=== PATIENT | female | born 1980 | race Caucasian/White ===

== ENCOUNTER 2023-01-15 11:00 | Inpatient (IN) | payer OTHER ==
[2023-01-15 10:55] VITALS: BMI 29.2
[2023-01-15 11:14] LABS: Hematocrit 43.7 % (34.9-44.5); Hemoglobin 14.7 g/dL (12.0-15.5); Mean Corpuscular HGB CONC 33.6 g/dL (32.0-36.0); Mean Corpuscular Hemoglobin 31.5 pg (27.0-33.0); Mean Corpuscular Volume 93.8 fl (81.6-98.3); Mean Platelet Volume 10.6 fl (7.4-10.4); Platelet Count 254 10x3/uL (150-450); RBC Distribution Width 12.2 % (11.5-14.5); Red Blood Cell (RBC) Count 4.66 10x6/uL (3.90-5.03)
[2023-01-15 11:59] LABS: Anion Gap 13 mmol/L (10-20); BUN (Urea Nitrogen) 13 mg/dL (7.0-18.7); Calc. Creatinine Clearance 0 mL/min (70-130); Calcium 9.1 mg/dL (7.8-10.44); Carbon Dioxide 21 mmol/L (22-29); Chloride 110 mmol/L (98-107); Estimated GFR 97; Glucose 86 mg/dL (70-105); Potassium 4.1 mmol/L (3.5-5.1); Sodium 140 mmol/L (136-145)
[2023-01-16] MEDS ORDERED: CEFAZOLIN 2 GM VIAL ONE (05:59)
[2023-01-16] MEDS ORDERED: Lidocaine 1% MPF 2 ML VIAL ONE (05:59)
[2023-01-16] MEDS ORDERED: Sodium Chloride 0.9% 100 ML ONE (06:00)
[2023-01-16] MEDS ORDERED: Rocuronium Bromide 10 MG/ML (10ML VIAL) ONE ×2 (06:56→07:32)
[2023-01-16] MEDS ORDERED: Lidocaine 1% PF 5 ML VIAL ONE ×2 (06:56→07:32)
[2023-01-16] MEDS ORDERED: fentaNYL PF 100 MCG/2 ML SYRINGE ONE ×2 (06:56→08:28)
[2023-01-16] MEDS ORDERED: PROPOFOL 20 ML ONE (06:56)
[2023-01-16] MEDS ORDERED: Ondansetron PF 4 MG/2 ML Vial ONE ×2 (07:01→07:32)
[2023-01-16] MEDS ORDERED: Dexamethasone 20 MG/5 ML VIAL ONE ×2 (07:01→07:32)
[2023-01-16] MEDS ORDERED: Midazolam HCl 2 mg/2 ml Vial ONE (07:01)
[2023-01-16] MEDS ORDERED: Scopolamine 1 mg/72 hour Patch ONE (07:22)
[2023-01-16] MEDS ORDERED: PROPOFOL 200 MG/20 ML VIAL ONE (07:32)
[2023-01-16] MEDS ORDERED: Glycopyrrolate 0.2 MG/ML 5 ML SYRINGE ONE ×2 (07:32→08:43)
[2023-01-16] MEDS ORDERED: NEOSTIGMINE 3 MG/3 ML SYR 3 MG/3 ML SYRINGE ONE ×2 (07:32→08:43)
[2023-01-16] MEDS ORDERED: FENTANYL 500 MCG/10 ML VIAL 2,000 MCG in Sodium Chloride 0.9% 60 ML IV PRN (09:19)
[2023-01-16] MEDS ORDERED: Ondansetron HCl/PF 4 MG/2 ML Vial IVP PRN (09:19)
[2023-01-16] MEDS ORDERED: diphenhydrAMINE 50 MG/ML VIAL IM PRN (09:19)
[2023-01-16] MEDS ORDERED: HYDROmorphone/PF 10 MG in Sodium Chloride 0.9% 99 ML IV PRN (09:19)
[2023-01-16] MEDS ORDERED: diphenhydrAMINE 50 MG/ML VIAL IVP PRN (09:19)
[2023-01-16] MEDS ORDERED: Naloxone HCl 0.4 mg/ml Vial IV PRN (09:19)
[2023-01-16] MEDS ORDERED: diphenhydrAMINE 25 MG CAP PO PRN (09:19)
[2023-01-16] MEDS ORDERED: Promethazine HCl 25 MG/ML VIAL IM PRN ×2 (09:19)
[2023-01-16] MEDS ORDERED: Ondansetron PF 4 MG/2 ML Vial IVP PRN ×2 (09:19→09:24)
[2023-01-16] MEDS ORDERED: Ketorolac Tromethamine 30 MG/ML VIAL IVP PRN (09:20)
[2023-01-16] MEDS ORDERED: HYDROmorphone 0.5 MG/0.5 ML SYRINGE ONE (09:20)
[2023-01-16] MEDS ORDERED: Mag-Al 1200 mg/1200 mg/30 ML UDCUP PO PRN (09:24)
[2023-01-16] MEDS ORDERED: Ipratropium/Albuterol 3 ML NEB NEB PRN (09:24)
[2023-01-16] MEDS ORDERED: Acetaminophen 325 MG TAB PO PRN (09:24)
[2023-01-16] MEDS ORDERED: hydrALAZINE 20 MG/ML VIAL SLOW IVP PRN (09:24)
[2023-01-16] MEDS ORDERED: Communication Order-Pharmacy FS SCH (09:30)
[2023-01-16] MEDS ORDERED: Ketorolac Tromethamine 30 MG/ML VIAL ONE (09:34)
[2023-01-16] MEDS: Lactated Ringer's 1,000 ML IV SCH ×3 (09:44→20:16)
[2023-01-16] MEDS ORDERED: fentaNYL 50 mcg/mL 1 mL Vial ONE (09:58)
[2023-01-16] MEDS: cefOXitin 2 GM in Sodium Chloride 0.9% 100 ML IVPB SCH ×2 (15:30→20:12)
[2023-01-16] MEDS ORDERED: FLU VACC QS2023-24(6MOS UP)/PF 60 MCG/0.5 ML SYRINGE IM ONE (16:15)
[2023-01-16] MEDS ORDERED: SUMAtriptan Succinate 50 MG TAB PO PRN (17:31)
[2023-01-16] MEDS: Topiramate 100 MG TAB PO SCH (20:12)
[2023-01-16] MEDS: Famotidine/PF 20 mg/2ml Vial SLOW IVP SCH (20:12)
[2023-01-17] MEDS: cefOXitin 2 GM in Sodium Chloride 0.9% 100 ML IVPB SCH ×3 (05:01→21:55)
[2023-01-17 05:29] LABS: #Basophils 0.1 thou/uL (0.0-0.2); #Eosinphils 0.1 thou/uL (0.0-0.7); #Monocytes 0.9 thou/uL (0.11-0.59); #Neutrophils 8.2 thou/uL (1.40-6.50); %Basophils 0.4 % (0.0-1.0); %Eosinophils 0.6 % (0.0-10.0); %Monocytes 7.5 % (0.0-10.0); Hematocrit 40.3 % (36.0-47.0); Hemoglobin 13.4 g/dL (12.0-16.0); Mean Corpuscular HGB CONC 33.3 g/dL (32.0-36.0); Mean Corpuscular Hemoglobin 31.8 pg (27.0-31.0); Mean Corpuscular Volume 95.7 fl (78.0-98.0); Mean Platelet Volume 10.9 fL (7.4-10.4); Platelet Count 210 10x3/uL (130-400); RBC Distribution Width 12.1 % (11.5-14.5); Red Blood Cell (RBC) Count 4.21 mill/uL (4.20-5.40); White Blood Cell (WBC) Count 11.5 10x3/uL (4.8-10.8)
[2023-01-17 05:57] LABS: Anion Gap 14 mmol/L (10-20); BUN (Urea Nitrogen) 7 mg/dL (7.0-18.7); Calc. Creatinine Clearance 117 mL/min (70-130); Calcium 8.5 mg/dL (7.8-10.44); Carbon Dioxide 20 mmol/L (22-29); Chloride 111 mmol/L (98-107); Estimated GFR 105; Glucose 101 mg/dL (70-105); Potassium 3.5 mmol/L (3.5-5.1); Sodium 141 mmol/L (136-145)
[2023-01-17] MEDS: Topiramate 100 MG TAB PO SCH ×2 (09:54→21:55)
[2023-01-17] MEDS: Famotidine/PF 20 mg/2ml Vial SLOW IVP SCH ×2 (09:54→21:54)
[2023-01-17] MEDS: Lactated Ringer's 1,000 ML IV SCH ×2 (21:45→21:52)
[2023-01-18] MEDS: Lactated Ringer's 1,000 ML IV SCH ×3 (05:15→22:13)
[2023-01-18] MEDS: cefOXitin 2 GM in Sodium Chloride 0.9% 100 ML IVPB SCH ×3 (05:31→22:14)
[2023-01-18] MEDS: Topiramate 100 MG TAB PO SCH ×2 (08:11→22:14)
[2023-01-18] MEDS: Famotidine/PF 20 mg/2ml Vial SLOW IVP SCH ×2 (08:11→22:14)
[2023-01-19 03:31] VITALS: BP 115/77; TEMP 98.5
[2023-01-19] MEDS: Lactated Ringer's 1,000 ML IV SCH (04:51)
[2023-01-19] MEDS: cefOXitin 2 GM in Sodium Chloride 0.9% 100 ML IVPB SCH (05:04)
[2023-01-19] MEDS ORDERED: HYDROcodone/Acetaminophen 10/325 mg Tablet PO PRN ×2 (08:46)
== END 2023-01-19 10:10 | disposition home or self-care (01) | DRG 358 ==
LOC: SURG A 01-16 05:48 → SURG B 01-16 15:30
PROVIDERS: ADMIT Thoracic Surgery (Cardiothoracic Vascular Surgery); ATTEND Thoracic Surgery (Cardiothoracic Vascular Surgery)
PROC: 04N Lower Arteries, Release (ICD-10-PCS; principal; 2023-01-16)
DX: I77.4 Celiac artery compression syndrome (principal); Z90.710 Acquired absence of both cervix and uterus; Z83.3 Family history of diabetes mellitus; Z82.49 Family history of ischemic heart disease and other diseases of the circulatory system; F17.210 Nicotine dependence, cigarettes, uncomplicated; Z79.899 Other long term (current) drug therapy; G43.909 Migraine, unspecified, not intractable, without status migrainosus
CPT/HCPCS: 36415; 80048; 85025; 85027; 86850; 86900; 86901; A4311; J0694; J1100; J1170; J1642; J1650; J1885; J2250; J2405; J2704; J3010; J3490; J7120; S0028